=== PATIENT | male | born 1990 | race Caucasian/White ===

== ENCOUNTER 2016-11-11 17:44 | Emergency (ER) | payer SELFPAY ==
[~2016-11-11] VITALS: Ht 149.9 cm; Wt 71.2 kg
[2016-11-11 17:45] VITALS: BP_SYST 122
--- NOTE | 2016-11-11 17:45 | NUR ---
Patient arrived via [facility] for unwitnessed fall at bus stop. Patient admits to drinking 6 beers today. C/O 04/22 left headache. Patient does not remember fall. He is fully awake alert and oriented at this time. Arrived is full c-spine. Patient to ER bed 1 to gown for evaluation. Side rails up. Report given to Wilton FARRELL.
--- NOTE | 2016-11-11 18:00 | NUR ---
Patient ran out of ER without notifing staff. Patient was walking to back of property with brisk steady gait. Patient chased to back of property. IV removed with cath intact. Patient is fully awake, alert and oriented. Patient states that he did not recieve pain medication promptly and wishes to leave as a result. I discussed with him that he is at risk for intercranial bleed as a result of the head strike and the plan of care involves CT head to rule this disorder out, and that the risks include and permanet diability. Patient is intractable and wishes to leave. Security contacted to observe patient until he leaves the property.
== END 2016-11-11 18:16 | disposition left against medical advice (07) ==
LOC: SED 17:44
DX: S09.90XA Unspecified injury of head, initial encounter (principal); Z53.20 Procedure and treatment not carried out because of patient's decision for unspecified reasons; W22.8XXA Striking against or struck by other objects, initial encounter; Y93.89 Activity, other specified; Y99.8 Other external cause status; Y92.89 Other specified places as the place of occurrence of the external cause
CPT/HCPCS: 71010; 93005; 99284